=== PATIENT | male | born 1965 | race Caucasian/White ===

== ENCOUNTER 2022-10-09 12:48 | Inpatient (IN) ==
[2022-10-09] MEDS ORDERED: SODIUM CHLORIDE 0.9% 500 ML IV STA (12:53)
--- NOTE | 2022-10-09 13:41 | XRay Report ---
XR chest 1V not portable HISTORY: 56 years-old Male Sepsis acute sepsis COMPARISON: None TECHNIQUE: PA view of the chest FINDINGS: Cardiomediastinal and hilar silhouettes are within normal limits. No pneumothorax, pleural effusion, airspace consolidation or pulmonary edema. Bones of the chest appear grossly intact. IMPRESSION: No acute process. ACT 112: Negative or not required by law. The above report was generated using voice recognition software. It may contain grammatical, syntax o r spelling errors. Electronically signed by: Gibran Cosby M.D. 10/09/2022 1:40 PM
[2022-10-09 13:46] LABS: Basophils # (auto) 0.06 K/uL (0-0.2); Basophils % (auto) 0.6 %; Eosinophils # (auto) 0.17 K/uL (0-0.50); Eosinophils % (auto) 1.8 %; Hematocrit (blood only) 46.1 % (42.0-52.0); Hemoglobin 16.3 g/dl (14.0-18.0); Immature Granulocytes # (auto) 0.04 K/uL (0.01-0.20); Immature Granulocytes % (auto) 0.4 %; Lymphocytes # (auto) 0.58 K/uL (1.2-3.4); Lymphocytes % (auto) 6.2 %; Mean Corpuscular Hemoglobin 32.1 pg (25.0-34.0); Mean Corpuscular Hgb Conc 35.4 g/dL (32.0-36.0); Mean Corpuscular Volume 90.7 fL (80.0-100.0); Mean Platelet Volume 9.8 fL (9.4-12.4); Monocytes # (auto) 0.67 K/uL (0.11-0.59); Monocytes % (auto) 7.2 %; Neutrophils # (auto) 7.82 K/uL (1.40-6.50); Neutrophils % (auto) 83.8 %; Platelet Count 277 K/uL (130-400); RDW Coefficient of Variation 12.5 % (11.5-14.5); RDW Standard Deviation 41.2 fL (36.4-46.3); Red Blood Count 5.08 M/uL (4.70-6.10); White Blood Count 9.34 K/ul (4.8-10.8)
[2022-10-09 13:58] LABS: Albumin Level 4.5 gm/dl (3.4-5.0); Bilirubin,Total 0.9 mg/dl (0.2-1.0); Calcium 9.4 mg/dl (8.6-10.3); Partial Thromboplastin Ratio 0.9; Partial Thromboplastin Time 25.7 Seconds (21.0-31.0); Potassium 3.9 mmol/L (3.5-5.1); Prothrombin Time 11.3 Seconds (9.0-12.0)
[2022-10-09 14:03] LABS: Albumin Globulin Ratio 1.5 (0.9-2); BUN Creatinine Ratio 8.6 (10-20); Creatinine Clr Calc Pharmacy 74.3 ml/min; Est GFR (African American) 92.2 ml/min; Est GFR (Non-African American) 79.5 ml/min; Total Protein 7.5 gm/dl (6.0-8.3)
[2022-10-09 14:08] LABS: Troponin I High Sensitivity 2.6 pg/ml (0-20)
--- NOTE | 2022-10-09 14:29 | Emergency Department Note ---
History of Present Illness General Chief complaint: Fever Stated complaint: FEVER, CHILLS, NEAR SYNCOPE Time Seen by Provider: 10/09/22 14:27 History of Present Illness This 56-year-old male patient presents to the emergency department for evaluation of fever, chills, and near syncope that started early this morning. He woke up at 4:30 am with chills. Then had fever of 102 F at 7:00 am. He took 2 Tylenol at 8 am. At 11:30 am the fever seemed to resolve, but he still had the chills. He was laying on the couch after the fever broke and when he tried to stand up, he felt like he was going to pass out. He did not actually have a syncopal episode. His neighbor got him a cold washcloth and checked his blood pressure which was low at 99/66. Had some pressure in his chest and tingling in his finger tips at that time too. The chest pressure and tingling symptoms lasted for 1 hour and then resolved. Feels like the fever has returned again. Denies any cough or SOB. Has a mild sore throat. Still able to swallow. Denies any abdominal pain, nausea, or vomiting. Denies any urinary symptoms. Denies any problems with his BMs. Has not eaten anything yet today and has not drank much today either. No known ill contacts currently, but his son had strep throat 2 weeks ago. Childhood immunizations up to date. Had 2 COVID vaccines. No flu vaccines. He states that he rarely gets sick. Home Medications Medication Instructions Recorded Confirmed Type [id number] acid-vit 1 tab PO DAILY 10/09/22 10/09/22 History K-lycop 400 mcg-20 mcg-370 mcg tablet (Men's 50 Plus Multivitamin) nirmatrelvir 300 mg (150 mg See Rx Instructions PO .COMPLEX 10/09/22 Rx x2)-ritonavir 100 mg tablet,dose #30 ea pack(EUA) (Paxlovid) Allergies Allergy/AdvReac Type Severity Reaction Status Date / Time banana Allergy Severe Hives Unverified 10/09/22 16:58 Past Med/Surg History Medical History No pertinent past medical history Surgical History H/O umbilical hernia repair History of appendectomy Social History (Updated 10/09/22 @ 17:19 by Melissa Dickson PA-C) Smoking Status: Current every day smoker Tobacco Type: Cigarettes packs per day: 0.5; Cigarettes Per Day: 1/2 ppd; Do You Dip or Chew Tobacco: No; Hx Alcohol Use: Yes Alcohol type: beer and hard liquor Hx Substance Use: No Preferred Language: Yakut Desulfurizer Operator Required: No Beliefs That Will Affect Care: None Current Living Situation: Spouse Feels Safe at Home: Yes Safety Concerns: Feels Safe At This Time Assistive Devices: Glasses Assistive Devices Comment: reader glasses Review of Systems See HPI for pertinent positives & negatives. Physical Exam Vital Signs Vital Signs - 24 hr 10/09/22 12:51 10/09/22 15:37 10/09/22 15:38 Temperature 38.4 C H Temperature Source Temporal Artery Scan Pulse Rate 137 H 114 H 113 H Pulse Rate [Right Finger] Pulse Rate from SpO2 Sensor 111 H Pulse Rhythm Pulse Rhythm [Right Finger] Pulse Strength [Right Finger] Respiratory Rate 20 15 Respiratory Effort / Characteristics Non-Labored Respiratory Depth Normal Respiratory Pattern Regular Blood Pressure 145/71 H 89/60 L Blood Pressure Mean 95 69 Blood Pressure Position Sitting Pulse Oximetry 94 Oxygen Delivery Method Room Air Oxygen Flow Rate Sepsis Recent Fever Within 48 Hours Yes Sepsis New/Unexplained Change in Mental Status No Sepsis Action Taken by Nursing Physician Notified 10/09/22 15:40 10/09/22 15:50 10/09/22 16:00 Temperature Temperature Source Pulse Rate 111 H 114 H Pulse Rate [Right Finger] Pulse Rate from SpO2 Sensor 108 H 115 H Pulse Rhythm Pulse Rhythm [Right Finger] Pulse Strength [Right Finger] Respiratory Rate 18 31 H Respiratory Effort / Characteristics Respiratory Depth Respiratory Pattern Blood Pressure 88/60 L Blood Pressure Mean 72 Blood Pressure Position Pulse Oximetry 93 92 Oxygen Delivery Method Oxygen Flow Rate Sepsis Recent Fever Within 48 Hours Sepsis New/Unexplained Change in Mental Status Sepsis Action Taken by Nursing 10/09/22 16:00 10/09/22 16:10 10/09/22 16:20 Temperature Temperature Source Pulse Rate 115 H 105 H 104 H Pulse Rate [Right Finger] Pulse Rate from SpO2 Sensor 114 H 107 H 105 H Pulse Rhythm Pulse Rhythm [Right Finger] Pulse Strength [Right Finger] Respiratory Rate 23 27 H 21 Respiratory Effort / Characteristics Respiratory Depth Respiratory Pattern Blood Pressure Blood Pressure Mean Blood Pressure Position Pulse Oximetry 94 93 93 Oxygen Delivery Method Oxygen Flow Rate Sepsis Recent Fever Within 48 Hours Sepsis New/Unexplained Change in Mental Status Sepsis Action Taken by Nursing 10/09/22 16:30 10/09/22 16:30 10/09/22 15:30 Temperature 38.6 C H Temperature Source Oral Pulse Rate 100 H Pulse Rate [Right Finger] Pulse Rate from SpO2 Sensor 100 H Pulse Rhythm Pulse Rhythm [Right Finger] Pulse Strength [Right Finger] Respiratory Rate 31 H Respiratory Effort / Characteristics Respiratory Depth Respiratory Pattern Blood Pressure 82/58 L Blood Pressure Mean 67 Blood Pressure Position Pulse Oximetry 92 Oxygen Delivery Method Oxygen Flow Rate Sepsis Recent Fever Within 48 Hours Sepsis New/Unexplained Change in Mental Status Sepsis Action Taken by Nursing 10/09/22 16:56 10/09/22 16:58 10/09/22 16:58 Temperature 37.6 C H Temperature Source Oral Pulse Rate 102 H Pulse Rate [Right Finger] 101 H Pulse Rate from SpO2 Sensor Pulse Rhythm Regular Pulse Rhythm [Right Finger] Regular Pulse Strength [Right Finger] Normal Respiratory Rate 32 H 28 H Respiratory Effort / Characteristics Non-Labored Spontaneous Respiratory Depth Normal Respiratory Pattern Regular Blood Pressure Blood Pressure Mean Blood Pressure Position Pulse Oximetry 92 92 94 Oxygen Delivery Method Room Air Room Air Oxygen Flow Rate 0 Sepsis Recent Fever Within 48 Hours Sepsis New/Unexplained Change in Mental Status Sepsis Action Taken by Nursing 10/09/22 16:40 10/09/22 16:50 10/09/22 16:59 Temperature Temperature Source Pulse Rate 103 H 98 H Pulse Rate [Right Finger] Pulse Rate from SpO2 Sensor 103 H 100 H Pulse Rhythm Pulse Rhythm [Right Finger] Pulse Strength [Right Finger] Respiratory Rate 27 H 24 Respiratory Effort / Characteristics Respiratory Depth Respiratory Pattern Blood Pressure 87/64 L Blood Pressure Mean 71 Blood Pressure Position Pulse Oximetry 92 95 Oxygen Delivery Method Oxygen Flow Rate Sepsis Recent Fever Within 48 Hours Sepsis New/Unexplained Change in Mental Status Sepsis Action Taken by Nursing 10/09/22 16:59 10/09/22 17:00 10/09/22 17:00 Temperature Temperature Source Pulse Rate 103 H 101 H Pulse Rate [Right Finger] Pulse Rate from SpO2 Sensor 102 H 101 H Pulse Rhythm Pulse Rhythm [Right Finger] Pulse Strength [Right Finger] Respiratory Rate 18 20 Respiratory Effort / Characteristics Respiratory Depth Respiratory Pattern Blood Pressure 97/60 L Blood Pressure Mean 77 Blood Pressure Position Pulse Oximetry 96 95 Oxygen Delivery Method Oxygen Flow Rate Sepsis Recent Fever Within 48 Hours Sepsis New/Unexplained Change in Mental Status Sepsis Action Taken by Nursing 10/09/22 17:10 10/09/22 17:20 Temperature Temperature Source Pulse Rate 95 H 98 H Pulse Rate [Right Finger] Pulse Rate from SpO2 Sensor 94 H 99 H Pulse Rhythm Pulse Rhythm [Right Finger] Pulse Strength [Right Finger] Respiratory Rate 30 H 26 H Respiratory Effort / Characteristics Respiratory Depth Respiratory Pattern Blood Pressure Blood Pressure Mean Blood Pressure Position Pulse Oximetry 93 93 Oxygen Delivery Method Oxygen Flow Rate Sepsis Recent Fever Within 48 Hours Sepsis New/Unexplained Change in Mental Status Sepsis Action Taken by Nursing Vital Signs: Vitals are noted on the nurse's note and reviewed by myself. GENERAL: The patient is ill-appearing, but non toxic in appearance and in no acute distress. SKIN: The skin was without obvious rashes, erythema, edema, or bruising. Capillary reflex less than 2 seconds. HEAD: Normocephalic, atraumatic. EARS: External auditory canals clear, tympanic membrane pearly barrow without erythema or effusion. No tragus tenderness. No mastoid tenderness. EYES: Pupils equal round and reactive to light and accommodation. Conjunctivae without injection, sclerae without icterus. Extraocular movements intact. NOSE: Patent, turbinates inflamed with no discharge. No sinus tenderness. MOUTH: Mucous membranes moist. Airway patent, uvula midline. Pharynx erythematous and edematous without exudate. Pharynx without postnasal drip. No evidence for peritonsillar abscess. NECK: Supple without nuchal rigidity. Negative Kernig and Brudzinski. No lymphadenopathy. HEART: Regular rate and rhythm without murmurs gallops or rubs. LUNGS: Clear to auscultation bilaterally without wheezes, rales or rhonchi. No accessory muscle use or retractions. ABDOMEN: Positive bowel sounds x 4. Normal tympanic percussion. Soft, nont frannie, without masses or organomegaly. NEURO: Patient was alert and oriented to person place and time. Cerebellar function intact. No focal neurological deficits. Course Administered Medications Albuterol (Albut/Ipratrop 3mg/0.5mg Neb 3 Ml Vial) 3 ml NEB Q4R VARUN; Protocol Stop: 11/08/22 20:03 Last Admin: 10/09/22 20:22 Dose: 3 ml Documented By: CORTEZ Guaifenesin (Guaifenesin 600 Mg Tabcr) 600 mg PO Q12 VARUN Stop: 11/08/22 20:59 Last Admin: 10/09/22 20:41 Dose: 600 mg Documented By: CHARLEY Heparin Sodium (Porcine) (Heparin Sod 5,000 Unit/0.5 Ml Vial) 5,000 units SQ Q8 VARUN Stop: 11/08/22 21:59 Last Admin: 10/09/22 20:42 Dose: 5,000 units Documented By: CHARLEY Discontinued Medications Acetaminophen (Acetaminophen 500 Mg Tab) 1,000 mg PO NOW STA Stop: 10/09/22 14:46 Last Admin: 10/09/22 14:48 Dose: 1,000 mg Documented By: ANTONIO Sodium Chloride (Nss) 500 mls @ 999 mls/hr IV .Q31M STA Stop: 10/09/22 13:23 Last Infusion: 10/09/22 16:06 Dose: 0 mls/hr Documented By: LABORATORY TECHNOLOGY TEACHER Admin: 10/09/22 13:16 Dose: 999 mls/hr Documented By: WILBER Sodium Chloride (Nss 1000ml) 2,000 mls @ 999 mls/hr IV .Q2H1M ONE Stop: 10/09/22 16:39 Last Infusion: 10/09/22 16:40 Dose: 0 mls/hr Documented By: LABORATORY TECHNOLOGY TEACHER Admin: 10/09/22 14:44 Dose: 999 mls/hr Documented By: ANTONIO Piperacillin Sod/Tazobactam Sod (Zosyn) 4.5 gm in 120 mls @ 240 mls/hr IV NOW ONE Stop: 10/09/22 15:21 Last Infusion: 10/09/22 17:01 Dose: 0 mls/hr Documented By: LABORATORY TECHNOLOGY TEACHER Admin: 10/09/22 16:01 Dose: 240 mls/hr Documented By: DARRIAN Vancomycin HCl 1,750 mg/ (Sodium Chloride) 535 mls @ 200 mls/hr IV NOW ONE Stop: 10/09/22 17:32 Last Admin: 10/09/22 16:59 Dose: 200 mls/hr Documented By: DARRIAN Clindamycin Phosphate (Cleocin/D5w) 900 mg in 50 mls @ 100 mls/hr IV NOW ONE Stop: 10/09/22 15:21 Last Infusion: 10/09/22 16:05 Dose: 0 mls/hr Documented By: LABORATORY TECHNOLOGY TEACHER Admin: 10/09/22 15:34 Dose: 100 mls/hr Documented By: LABORATORY TECHNOLOGY TEACHER Sodium Chloride (Nss) 500 mls @ 999 mls/hr IV .Q31M ONE Stop: 10/09/22 16:29 Last Infusion: 10/09/22 17:00 Dose: 0 mls/hr Documented By: LABORATORY TECHNOLOGY TEACHER Admin: 10/09/22 16:02 Dose: 999 mls/hr Documented By: LABORATORY TECHNOLOGY TEACHER Sodium Chloride (Nss 1000ml) 250 mls @ 999 mls/hr IV .Q16M ONE Stop: 10/09/22 18:16 Last Admin: 10/09/22 20:41 Dose: 999 mls/hr Documented By: CHARLEY Ibuprofen (Ibuprofen 600 Mg Tab) 600 mg PO NOW STA Stop: 10/09/22 16:00 Last Admin: 10/09/22 16:59 Dose: 600 mg Documented By: LABORATORY TECHNOLOGY TEACHER Medical Decision Making Differential Diagnosis Differential diagnosis includes Influenza, RSV, COVID, viral syndrome, otitis media, otitis externa, pharyngitis, strep throat, pneumonia, meningitis, urinary tract infection, cellulitis, abscess, sepsis, bacteremia, as well as other pathologies. Laboratory Data Attestation: I reviewed the patient's lab results. 10/09/22 12:53 10/09/22 12:53 Lab Results 10/09/22 10/09/22 10/09/22 Range/Units 12:53 12:53 12:53 WBC 9.34 (4.8-10.8) K/ul RBC 5.08 (4.70-6.10) M/uL Hgb 16.3 (14.0-18.0) g/dl Hct 46.1 (42.0-52.0) % MCV 90.7 (80.0-100.0) fL MCH 32.1 (25.0-34.0) pg MCHC 35.4 (32.0-36.0) g/dL RDW Std Deviation 41.2 (36.4-46.3) fL RDW Coeff of Jamil 12.5 (11.5-14.5) % Plt Count 277 (130-400) K/uL MPV 9.8 (9.4-12.4) fL Immature Gran % (Auto) 0.4 % Neut % (Auto) 83.8 % Lymph % (Auto) 6.2 % [place] % (Auto) 7.2 % Eos % (Auto) 1.8 % Baso % (Auto) 0.6 % Neut # (Auto) 7.82 H (1.40-6.50) K/uL Lymph # (Auto) 0.58 L (1.2-3.4) K/uL [place] # (Auto) 0.67 H (0.11-0.59) K/uL Eos # (Auto) 0.17 (0-0.50) K/uL Baso # (Auto) 0.06 (0-0.2) K/uL Immature Gran # (Auto) 0.04 (0.01-0.20) K/uL PT 11.3 (9.0-12.0) Seconds INR 1.0 (0.9-1.1) APTT 25.7 (21.0-31.0) Seconds PTT Ratio 0.9 Sodium (136-145) mmol/L Potassium (3.5-5.1) mmol/L Chloride (98-107) mmol/L Carbon Dioxide (21-32) mmol/L Anion Gap (3-11) BUN (6-23) mg/dl Creatinine (0.6-1.4) mg/dl Est Cr Clr Drug Dosing ml/min Est GFR ( Amer) ml/min Est GFR (Non-Af Amer) ml/min BUN/Creatinine Ratio (10-20) Glucose (70-99(Fasting)) mg/dl Lactate 2.6 H* (0.4-2.0) mmol/L Calcium (8.6-10.3) mg/dl Magnesium (1.7-2.4) mg/dl Total Bilirubin (0.2-1.0) mg/dl AST (13-39) U/L ALT (7-52) U/L Alkaline Phosphatase (34-104) U/L Troponin I High Sens (0-20) pg/ml Total Protein (6.0-8.3) gm/dl Albumin (3.4-5.0) gm/dl Globulin (2.5-4.0) gm/dl Albumin/Globulin Ratio (0.9-2) Procalcitonin (0-0.5) ng/ml Urine Color Urine Appearance (Clear) Urine pH (4.5-7.5) Ur Specific [place] (1.000-1.030) Urine Protein (Negative) Urine Glucose (UA) (Negative) Urine Ketones (Negative) Urine Blood (Negative) Urine Nitrite (Negative) Urine Bilirubin (Negative) Urine Urobilinogen (Negative) Ur Leukocyte Esterase (Negative) Urine WBC (Auto) (0-5) /hpf Urine RBC (Auto) (0-4) /hpf U Hyaline Cast (Auto) (0-5) /lpf U Epithel Cells (Auto) (0-5) /lpf Urine Bacteria (Auto) (Negative) Ur Renal Epithelial Cell Adenovirus (PCR) (NotDetected) B. pertussis DNA (PCR) (NotDetected) B.parapertussis DNA PCR (NotDetected) C. pneumoniae DNA (PCR) (NotDetected) Coronavirus OC43 (PCR) (NotDetected) Coronavirus HKU1 (PCR) (NotDetected) Coronavirus 229E (PCR) (NotDetected) SARS-CoV-2 (PCR) (NotDetected) Coronavirus NL63 (PCR) (NotDetected) Monoscreen (Negative) Human Metapneumovir PCR (NotDetected) Influenza Type A (PCR) (NotDetected) Influenza Type B (PCR) (NotDetected) M. pneumoniae (PCR) (NotDetected) Parainfluenza 1 (PCR) (NotDetected) Parainfluenza 2 (PCR) (NotDetected) Parainfluenza 3 (PCR) (NotDetected) Parainfluenza 4 (PCR) (NotDetected) RSV (PCR) (NotDetected) Entero/Rhino (PCR) (NotDetected) Group A Strep (Molecular) (Negative) Group A Strep (PCR) 10/09/22 10/09/22 10/09/22 Range/Units 12:53 12:53 14:39 WBC (4.8-10.8) K/ul RBC (4.70-6.10) M/uL Hgb (14.0-18.0) g/dl Hct (42.0-52.0) % MCV (80.0-100.0) fL MCH (25.0-34.0) pg MCHC (32.0-36.0) g/dL RDW Std Deviation (36.4-46.3) fL RDW Coeff of Jamil (11.5-14.5) % Plt Count (130-400) K/uL MPV (9.4-12.4) fL Immature Gran % (Auto) % Neut % (Auto) % Lymph % (Auto) % [place] % (Auto) % Eos % (Auto) % Baso % (Auto) % Neut # (Auto) (1.40-6.50) K/uL Lymph # (Auto) (1.2-3.4) K/uL [place] # (Auto) (0.11-0.59) K/uL Eos # (Auto) (0-0.50) K/uL Baso # (Auto) (0-0.2) K/uL Immature Gran # (Auto) (0.01-0.20) K/uL PT (9.0-12.0) Seconds INR (0.9-1.1) APTT (21.0-31.0) Seconds PTT Ratio Sodium 138 (136-145) mmol/L Potassium 3.9 (3.5-5.1) mmol/L Chloride 103 (98-107) mmol/L Carbon Dioxide 27 (21-32) mmol/L Anion Gap 8 (3-11) BUN 9 (6-23) mg/dl Creatinine 1.05 (0.6-1.4) mg/dl Est Cr Clr Drug Dosing 74.3 ml/min Est GFR ( Amer) 92.2 ml/min Est GFR (Non-Af Amer) 79.5 ml/min BUN/Creatinine Ratio 8.6 L (10-20) Glucose 94 (70-99(Fasting)) mg/dl Lactate (0.4-2.0) mmol/L Calcium 9.4 (8.6-10.3) mg/dl Magnesium 2.0 (1.7-2.4) mg/dl Total Bilirubin 0.9 (0.2-1.0) mg/dl AST 26 (13-39) U/L ALT 31 (7-52) U/L Alkaline Phosphatase 64 (34-104) U/L Troponin I High Sens 2.6 (0-20) pg/ml Total Protein 7.5 (6.0-8.3) gm/dl Albumin 4.5 (3.4-5.0) gm/dl Globulin 3.0 (2.5-4.0) gm/dl Albumin/Globulin Ratio 1.5 (0.9-2) Procalcitonin < 0.05 (0-0.5) ng/ml Urine Color Urine Appearance (Clear) Urine pH (4.5-7.5) Ur Specific [place] (1.000-1.030) Urine Protein (Negative) Urine Glucose (UA) (Negative) Urine Ketones (Negative) Urine Blood (Negative) Urine Nitrite (Negative) Urine Bilirubin (Negative) Urine Urobilinogen (Negative) Ur Leukocyte Esterase (Negative) Urine WBC (Auto) (0-5) /hpf Urine RBC (Auto) (0-4) /hpf U Hyaline Cast (Auto) (0-5) /lpf U Epithel Cells (Auto) (0-5) /lpf Urine Bacteria (Auto) (Negative) Ur Renal Epithelial Cell Adenovirus (PCR) (NotDetected) B. pertussis DNA (PCR) (NotDetected) B.parapertussis DNA PCR (NotDetected) C. pneumoniae DNA (PCR) (NotDetected) Coronavirus OC43 (PCR) (NotDetected) Coronavirus HKU1 (PCR) (NotDetected) Coronavirus 229E (PCR) (NotDetected) SARS-CoV-2 (PCR) (NotDetected) Coronavirus NL63 (PCR) (NotDetected) Monoscreen (Negative) Human Metapneumovir PCR (NotDetected) Influenza Type A (PCR) (NotDetected) Influenza Type B (PCR) (NotDetected) M. pneumoniae (PCR) (NotDetected) Parainfluenza 1 (PCR) (NotDetected) Parainfluenza 2 (PCR) (NotDetected) Parainfluenza 3 (PCR) (NotDetected) Parainfluenza 4 (PCR) (NotDetected) RSV (PCR) (NotDetected) Entero/Rhino (PCR) (NotDetected) Group A Strep (Molecular) (Negative) Group A Strep (PCR) Cancelled 10/09/22 10/09/22 10/09/22 Range/Units 14:39 14:50 15:34 WBC (4.8-10.8) K/ul RBC (4.70-6.10) M/uL Hgb (14.0-18.0) g/dl Hct (42.0-52.0) % MCV (80.0-100.0) fL MCH (25.0-34.0) pg MCHC (32.0-36.0) g/dL RDW Std Deviation (36.4-46.3) fL RDW Coeff of Jamil (11.5-14.5) % Plt Count (130-400) K/uL MPV (9.4-12.4) fL Immature Gran % (Auto) % Neut % (Auto) % Lymph % (Auto) % [place] % (Auto) % Eos % (Auto) % Baso % (Auto) % Neut # (Auto) (1.40-6.50) K/uL Lymph # (Auto) (1.2-3.4) K/uL [place] # (Auto) (0.11-0.59) K/uL Eos # (Auto) (0-0.50) K/uL Baso # (Auto) (0-0.2) K/uL Immature Gran # (Auto) (0.01-0.20) K/uL PT (9.0-12.0) Seconds INR (0.9-1.1) APTT (21.0-31.0) Seconds PTT Ratio Sodium (136-145) mmol/L Potassium (3.5-5.1) mmol/L Chloride (98-107) mmol/L Carbon Dioxide (21-32) mmol/L Anion Gap (3-11) BUN (6-23) mg/dl Creatinine (0.6-1.4) mg/dl Est Cr Clr Drug Dosing ml/min Est GFR ( Amer) ml/min Est GFR (Non-Af Amer) ml/min BUN/Creatinine Ratio (10-20) Glucose (70-99(Fasting)) mg/dl Lactate 2.2 H* (0.4-2.0) mmol/L Calcium (8.6-10.3) mg/dl Magnesium (1.7-2.4) mg/dl Total Bilirubin (0.2-1.0) mg/dl AST (13-39) U/L ALT (7-52) U/L Alkaline Phosphatase (34-104) U/L Troponin I High Sens (0-20) pg/ml Total Protein (6.0-8.3) gm/dl Albumin (3.4-5.0) gm/dl Globulin (2.5-4.0) gm/dl Albumin/Globulin Ratio (0.9-2) Procalcitonin (0-0.5) ng/ml Urine Color Dark Yellow Urine Appearance Clear (Clear) Urine pH 8.5 H (4.5-7.5) Ur Specific [place] 1.026 (1.000-1.030) Urine Protein 1+ H (Negative) Urine Glucose (UA) Negative (Negative) Urine Ketones Trace H (Negative) Urine Blood Negative (Negative) Urine Nitrite Negative (Negative) Urine Bilirubin Negative (Negative) Urine Urobilinogen Negative (Negative) Ur Leukocyte Esterase Negative (Negative) Urine WBC (Auto) 1-5 (0-5) /hpf Urine RBC (Auto) 0-4 (0-4) /hpf U Hyaline Cast (Auto) 1-5 (0-5) /lpf U Epithel Cells (Auto) >30 H (0-5) /lpf Urine Bacteria (Auto) Negative (Negative) Ur Renal Epithelial Cell Not Reportable Adenovirus (PCR) (NotDetected) B. pertussis DNA (PCR) (NotDetected) B.parapertussis DNA PCR (NotDetected) C. pneumoniae DNA (PCR) (NotDetected) Coronavirus OC43 (PCR) (NotDetected) Coronavirus HKU1 (PCR) (NotDetected) Coronavirus 229E (PCR) (NotDetected) SARS-CoV-2 (PCR) (NotDetected) Coronavirus NL63 (PCR) (NotDetected) Monoscreen (Negative) Human Metapneumovir PCR (NotDetected) Influenza Type A (PCR) (NotDetected) Influenza Type B (PCR) (NotDetected) M. pneumoniae (PCR) (NotDetected) Parainfluenza 1 (PCR) (NotDetected) Parainfluenza 2 (PCR) (NotDetected) Parainfluenza 3 (PCR) (NotDetected) Parainfluenza 4 (PCR) (NotDetected) RSV (PCR) (NotDetected) Entero/Rhino (PCR) (NotDetected) Group A Strep (Molecular) Negative (Negative) Group A Strep (PCR) 10/09/22 10/09/22 Range/Units 15:43 17:11 WBC (4.8-10.8) K/ul RBC (4.70-6.10) M/uL Hgb (14.0-18.0) g/dl Hct (42.0-52.0) % MCV (80.0-100.0) fL MCH (25.0-34.0) pg MCHC (32.0-36.0) g/dL RDW Std Deviation (36.4-46.3) fL RDW Coeff of Jamil (11.5-14.5) % Plt Count (130-400) K/uL MPV (9.4-12.4) fL Immature Gran % (Auto) % Neut % (Auto) % Lymph % (Auto) % [place] % (Auto) % Eos % (Auto) % Baso % (Auto) % Neut # (Auto) (1.40-6.50) K/uL Lymph # (Auto) (1.2-3.4) K/uL [place] # (Auto) (0.11-0.59) K/uL Eos # (Auto) (0-0.50) K/uL Baso # (Auto) (0-0.2) K/uL Immature Gran # (Auto) (0.01-0.20) K/uL PT (9.0-12.0) Seconds INR (0.9-1.1) APTT (21.0-31.0) Seconds PTT Ratio Sodium (136-145) mmol/L Potassium (3.5-5.1) mmol/L Chloride (98-107) mmol/L Carbon Dioxide (21-32) mmol/L Anion Gap (3-11) BUN (6-23) mg/dl Creatinine (0.6-1.4) mg/dl Est Cr Clr Drug Dosing ml/min Est GFR ( Amer) ml/min Est GFR (Non-Af Amer) ml/min BUN/Creatinine Ratio (10-20) Glucose (70-99(Fasting)) mg/dl Lactate (0.4-2.0) mmol/L Calcium (8.6-10.3) mg/dl Magnesium (1.7-2.4) mg/dl Total Bilirubin (0.2-1.0) mg/dl AST (13-39) U/L ALT (7-52) U/L Alkaline Phosphatase (34-104) U/L Troponin I High Sens (0-20) pg/ml Total Protein (6.0-8.3) gm/dl Albumin (3.4-5.0) gm/dl Globulin (2.5-4.0) gm/dl Albumin/Globulin Ratio (0.9-2) Procalcitonin (0-0.5) ng/ml Urine Color Urine Appearance (Clear) Urine pH (4.5-7.5) Ur Specific [place] (1.000-1.030) Urine Protein (Negative) Urine Glucose (UA) (Negative) Urine Ketones (Negative) Urine Blood (Negative) Urine Nitrite (Negative) Urine Bilirubin (Negative) Urine Urobilinogen (Negative) Ur Leukocyte Esterase (Negative) Urine WBC (Auto) (0-5) /hpf Urine RBC (Auto) (0-4) /hpf U Hyaline Cast (Auto) (0-5) /lpf U Epithel Cells (Auto) (0-5) /lpf Urine Bacteria (Auto) (Negative) Ur Renal Epithelial Cell Adenovirus (PCR) Not Detected (NotDetected) B. pertussis DNA (PCR) Not Detected (NotDetected) B.parapertussis DNA PCR Not Detected (NotDetected) C. pneumoniae DNA (PCR) Not Detected (NotDetected) Coronavirus OC43 (PCR) Not Detected (NotDetected) Coronavirus HKU1 (PCR) Not Detected (NotDetected) Coronavirus 229E (PCR) Not Detected (NotDetected) SARS-CoV-2 (PCR) DETECTED A* (NotDetected) Coronavirus NL63 (PCR) Not Detected (NotDetected) Monoscreen Negative (Negative) Human Metapneumovir PCR Not Detected (NotDetected) Influenza Type A (PCR) Not Detected (NotDetected) Influenza Type B (PCR) Not Detected (NotDetected) M. pneumoniae (PCR) Not Detected (NotDetected) Parainfluenza 1 (PCR) Not Detected (NotDetected) Parainfluenza 2 (PCR) Not Detected (NotDetected) Parainfluenza 3 (PCR) Not Detected (NotDetected) Parainfluenza 4 (PCR) Not Detected (NotDetected) RSV (PCR) Not Detected (NotDetected) Entero/Rhino (PCR) Not Detected (NotDetected) Group A Strep (Molecular) (Negative) Group A Strep (PCR) Imaging Data Radiologist's Impression: Chest X-Ray 10/09/22 12:53 XR chest 1V not portable HISTORY: 56 years-old Male Sepsis acute sepsis COMPARISON: None TECHNIQUE: PA view of the chest FINDINGS: Cardiomediastinal and hilar silhouettes are within normal limits. No pneumothorax, pleural effusion, airspace consolidation or pulmonary edema. Bones of the chest appear grossly intact. IMPRESSION: No acute process. ACT 112: Negative or not required by law. The above report was generated using voice recognition software. It may contain grammatical, syntax or spelling errors. Electronically signed by: Gibran Cosby M.D. 10/09/2022 1:40 PM MDM Narrative Due to the abnormally long wait time, the patient was triaged, an IV lock placed and labs drawn, and nursing protocols ordered prior to being taken back to a ro om. By the time I examined the patient, a lot of his blood work had come back including his elevated lactate level at 2.6. The patient had episodes of tachycardia as well as hypotension while in the emergency department and he was febrile up to 38.6 C. The patient was given a total of 2.5 L of normal saline solution bolus in the ER. He was also given Tylenol 1000 mg p.o. followed by ibuprofen 600 mg p.o. for pain and fever. The patient did finally defervescence after the ibuprofen. Continuous hospital monitor: Order was placed for continuous hospital monitor. Patient was placed on the hospital monitor and continuous pulse ox. Patient was noted to be in sinus tachycardia at an initial rate of 130 bpm per my interpretation. EKG interpreted by myself as sinus tachycardia at 113 bpm with no acute ST or T wave changes. Chest x-ray was interpreted by myself and read by radiology as above as negative for acute cardiopulmonary etiology. CBC with normal white blood cell count of 9.34, normal hemoglobin at 16.3, and normal platelet count of 277. Coags were normal. CMP was normal. High- sensitivity troponin was normal. Magnesium was normal. Procalcitonin was normal. Initial lactate was elevated at 2.6 with repeat lactate level of 2.2. Group A strep was negative. Urinalysis without evidence for UTI. Blood cultures are pending. The patient's son had strep throat 2 weeks ago. The patient's negative strep test may be a false negative due to early presentation of symptoms. I spoke with the ED pharmacist who recommended the patient get Zosyn, vancomycin, and clindamycin IV for treatment at this time and the patient was given these antibiotics. There was a delay in obtaining the patient's respiratory bio fire panel results because the lab stated they did not receive the BioFire swab that was sent down and the swab had to be recollected. The respiratory bio fire did come back positive for COVID after the patient had already been admitted. The patient was independently evaluated by Dr. Foley, who agrees with my assessment and treatment plan. We will admit the patient for further evaluation and treatment due to the patient's elevated lactate level, hypotension, tachycardia, and febrile illness. I spoke with the on-call hospitalist who agreed to admit the patient for further evaluation and treatment. Please refer to their dictation for further details. The patient was admitted in stable condition. Impression & Plan Sepsis, Elevated lactic acid level, Fever, COVID-19 Discharge Plan Visit Data Chief Complaint: Fever Stated Complaint: FEVER, CHILLS, NEAR SYNCOPE ED Provider: Enrico Foley ED Midlevel Provider: Kathia Nielsen Discharge Problem: Sepsis, Elevated lactic acid level, Fever, COVID-19 Patient Disposition: Admitted As Inpatient Condition: Good Discharge Instructions Interventions: ED Discharge Assessment Last Done: 10/09/22 19:40
[2022-10-09] MEDS ORDERED: SODIUM CHLORIDE 0.9% 1000ML 2,000 ML IV ONE (14:39)
[2022-10-09] MEDS ORDERED: ACETAMINOPHEN 500 MG TAB PO STA (14:45)
[2022-10-09] MEDS ORDERED: PIPERACILLIN/TAZOBACTAM 4.5 GM/120 ML BAG IV ONE (14:52)
[2022-10-09] MEDS ORDERED: VANCOMYCIN HCL 1,750 MG in SODIUM CHLORIDE 0.9% 500 ML IV ONE (14:52)
[2022-10-09] MEDS ORDERED: CLINDAMYCIN/D5W 900 MG/50 ML BAG IV ONE (14:52)
[2022-10-09] MEDS ORDERED: VANCOMYCIN CONSULT ACTIVE PRN (14:52)
[2022-10-09] MEDS ORDERED: IBUPROFEN 600 MG TAB PO STA (15:59)
[2022-10-09] MEDS ORDERED: SODIUM CHLORIDE 0.9% 500 ML IV ONE (15:59)
[2022-10-09 16:51] LABS: Appearance Urine Clear (Clear); Bacteria Urine Automated Negative (Negative); Bilirubin Urine Negative (Negative); Blood Urine Negative (Negative); Color Urine Dark Yellow; Epithelial Cell Urine Auto >30 /lpf (0-5); Glucose Urine UA Negative (Negative); Ketones Urine Trace (Negative); Leukocyte Esterase Urine Negative (Negative); Nitrite Urine Negative (Negative); RBC Urine Automated 0-4 /hpf (0-4); Specific Gravity Urine 1.026 (1.000-1.030); Urobilinogen Urine Negative (Negative); pH Urine 8.5 (4.5-7.5)
--- NOTE | 2022-10-09 17:00 | History & Physical Report ---
Date of Service October 09, 2022 Assessment & Plan (1) Sepsis: Plan: Tachycardic/hypotensive (but not hypoxic, no pleuritic chest pain reported) with elevated lactic on admission to 2.6--> 2.2 on repeat CXR w/o consolidative process Unclear etiology initially, however did appear likely to be viral in nature vs strep? son recently ill w/ strep throat about 2 weeks ago per report -- initial strep testing in ER negative. fine bibasilar crackles on exam and biofire still pending at trime of initial examination w/ bilateral faint crackles/concerns for COVID s/p 3L IVF in the ER for hypotension, BPs improving but still borderline. No lightheaded/dizziness at present. Kidney function stable. No granular casts on UA Admit to PCU w/ telemetry given tachycardia/hypotension/close monitoring Biofire testing POSITIVE for COVID-19 Given Vanco/Zosyn/Clinda in ER -- Deferring continuing abx at present given +COVID/negative procal/no consolidative process on CXR Blood cultures pending and will need f/ui Not hypoxic at present and currently 94% on RA -- if becomes hypoxic, recommend adding decadron Incentive spirometer, flutter valve, Duonebs q4r scheduled for now Discussed w/ patient/ about Paxlovid - she is willing to go pickle sorter at [facility] today and bring back in --> order placed to begin tonight once received Antipyretics as needed IVF NSS @100cc/hr for dehydration on exam/hypotension/looses from fever, slight dehydration on exam Heparin SQ for DVT prophylaxis Labs in AM (2) COVID-19: Plan: found to be positive on biofire -- has been vaccinated x 2, never had in the past isolation precautions not hypoxic at present, deferring Decadron for now -- start if he were to become such Rx to [facility] for Paxlovid and to begin when she brings back in Incentive spirometer, flutter valve, Mucinex bid Supplemental O2 to maintain sats -- currently 94% (3) Elevated lactic acid level: Plan: 2.6--> 2.2. no abdominal pain on exam. suspect 2nd to covid infection as above cxr w/o consolidative process (at present), not hypoxic (?if was at home though), UA doesn't appear to be infected but pending further results IVF as above, supportive care (4) Fever: Plan: 2nd to viral illness, antipyretics prn, monitor blood cultures (5) Tobacco consumption: Plan: 1/2ppd smoker, declined nicotine patch. rec cessation History of Present Illness Chief Complaint: fever, near syncope, sepsis Primary Care Provider: Karly Wise PA-C 56yo male without significant PMHx (but is current 1/2ppd smoker) who reports he NEVER gets sick, presented to ER with sepsis of unknown source with hypotension/tachycardia/fever 38.6C. Reports was in his usual state of health until about 4am this morning when developed fevers/chills and took some Tylenol around 6-7am and laid back down to sleep until around 11am and felt near-syncope when he got up to walk around. His blood pressure was on the low side on check and was going to take to urgent care but decided to bring to the hospital instead. Found to have elevated lactic acid 2.2. Denies abdominal pain/nausea or vomiting. Denied any issues with eating/drinking/change in bowel habits. Had biofire obtained, strep cx negative initial testing. When inquired about any recent sick contacts patient and note that their child was diagnosed with strep throat about two weeks ago. No recent OTC medications/vaccinations/immunizations or recent events. No recent tick bites/rashes/LE edema reported. 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 Lactic 2.6-->2.2. WBC 9.34k w/ L shift. Chemistries acceptable, BUN/Cr 9/1.05. Procal <0.05. 1L NSS bolus Ibuprofen 600mg PO x 1 now Zosyn/Clinda/Vanc ordered by ER. Blood cultures pending. Initial group A strep testing negative. Biofire pending, urine pending Discussed broad spectrum antibiotics and monitoring blood cultures, obtaining CT soft tissue of neck given lymphadenopathy and monitoring further testing. and patient in agreement with plan. Patient is FULL code if need for any CPR/intubation or life saving measures. Allergies Allergy/AdvReac Type Severity Reaction Status Date / Time banana Allergy Severe Hives Unverified 10/09/22 16:58 Home Medications Medication Instructions Recorded Confirmed Type kdcxzlpqmumy-cew-fxiyn acid-vit 1 tab PO DAILY 10/09/22 10/09/22 History K-lycop 400 mcg-20 mcg-370 mcg tablet (Men's 50 Plus Multivitamin) nirmatrelvir 300 mg (150 mg See Rx Instructions PO .COMPLEX 10/09/22 Rx x2)-ritonavir 100 mg tablet,dose #30 ea pack(EUA) (Paxlovid) Past Med/Surg History Medical History No pertinent past medical history Surgical History H/O umbilical hernia repair History of appendectomy Social History (Updated 10/09/22 @ 17:19 by eMlissa Dickson PA-C) Smoking Status: Current every day smoker Tobacco Type: Cigarettes packs per day: 0.5; Cigarettes Per Day: 1/2 ppd; Do You Dip or Chew Tobacco: No; Hx Alcohol Use: Yes Alcohol type: beer and hard liquor Hx Substance Use: No Preferred Language: Albanian Communication Ability: Effective [employer] Rec[employer]iter Required: No Beliefs That Will Affect Care: None Current Living Situation: Spouse Feels Safe at Home: Yes Safety Concerns: Feels Safe At This Time Assistive Devices: None Assistive Devices Comment: reader glasses Physical Exam Physical Exam: General: WD/WN male laying in hospital bed, at bedside, NAD but sweaty HEENT: head normocephalic, atraumatic, mm slightly dry, trachea midline, +cervical lymphadenopathy, no stridor Resp: not currently tachypneic, slightly diminished in the bases, faint crackles bilateral posterior lung hogan, on room air CV: sinus, HRs 90-100s, no significant m/r/g, no pitting edema/calf tenderness GI: +BS, soft/NT MSK/Neuro: no focal deficit, no slurred speech, answering questions appropriately Psych:aox3, cooperative with exam Skin: no obvious rashes/lesions, skin moist/wet from perspiration Results & Data Results & Data Vital Signs (Past 12 Hours) Vital Signs Temp Pulse Resp BP Pulse Ox O2 Del Method 10/09/22 15:30 38.6 C H 10/09/22 16:30 100 H 31 H 92 10/09/22 16:30 82/58 L 10/09/22 16:20 104 H 21 93 10/09/22 16:10 105 H 27 H 93 10/09/22 16:00 115 H 23 94 10/09/22 16:00 88/60 L 10/09/22 15:50 114 H 31 H 92 10/09/22 15:40 111 H 18 93 10/09/22 15:38 113 H 15 89/60 L 94 10/09/22 15:37 114 H 10/09/22 12:51 38.4 C H 137 H 20 145/71 H Room Air Laboratory Results 10/09/22 10/09/22 10/09/22 Range/Units 17:11 17:11 15:43 WBC (4.8-10.8) K/ul RBC (4.70-6.10) M/uL Hgb (14.0-18.0) g/dl Hct (42.0-52.0) % MCV (80.0-100.0) fL MCH (25.0-34.0) pg MCHC (32.0-36.0) g/dL RDW Std Deviation (36.4-46.3) fL RDW Coeff of Jamil (11.5-14.5) % Plt Count (130-400) K/uL MPV (9.4-12.4) fL Immature Gran % (Auto) % Neut % (Auto) % Lymph % (Auto) % [place] % (Auto) % Eos % (Auto) % Baso % (Auto) % Neut # (Auto) (1.40-6.50) K/uL Lymph # (Auto) (1.2-3.4) K/uL [place] # (Auto) (0.11-0.59) K/uL Eos # (Auto) (0-0.50) K/uL Baso # (Auto) (0-0.2) K/uL Immature Gran # (Auto) (0.01-0.20) K/uL PT (9.0-12.0) Seconds INR (0.9-1.1) APTT (21.0-31.0) Seconds PTT Ratio Sodium (136-145) mmol/L Potassium (3.5-5.1) mmol/L Chloride (98-107) mmol/L Carbon Dioxide (21-32) mmol/L Anion Gap (3-11) BUN (6-23) mg/dl Creatinine (0.6-1.4) mg/dl Est Cr Clr Drug Dosing ml/min Est GFR ( Amer) ml/min Est GFR (Non-Af Amer) ml/min BUN/Creatinine Ratio (10-20) Glucose (70-99(Fasting)) mg/dl Lactate (0.4-2.0) mmol/L Calcium (8.6-10.3) mg/dl Magnesium (1.7-2.4) mg/dl Total Bilirubin (0.2-1.0) mg/dl AST (13-39) U/L ALT (7-52) U/L Alkaline Phosphatase (34-104) U/L Troponin I High Sens (0-20) pg/ml Total Protein (6.0-8.3) gm/dl Albumin (3.4-5.0) gm/dl Globulin (2.5-4.0) gm/dl Albumin/Globulin Ratio (0.9-2) Procalcitonin (0-0.5) ng/ml Urine Color Urine Appearance (Clear) Urine pH (4.5-7.5) Ur Specific [place] (1.000-1.030) Urine Protein (Negative) Urine Glucose (UA) (Negative) Urine Ketones (Negative) Urine Blood (Negative) Urine Nitrite (Negative) Urine Bilirubin (Negative) Urine Urobilinogen (Negative) Ur Leukocyte Esterase (Negative) Urine WBC (Auto) Urine RBC (Auto) U Hyaline Cast (Auto) U Epithel Cells (Auto) Urine Bacteria (Auto) Ur Renal Epithelial Cell Adenovirus (PCR) Pending B. pertussis DNA (PCR) Pending B.parapertussis DNA PCR Pending C. pneumoniae DNA (PCR) Pending Coronavirus OC43 (PCR) Pending Coronavirus HKU1 (PCR) Pending Coronavirus 229E (PCR) Pending SARS-CoV-2 (PCR) Pending Coronavirus NL63 (PCR) Pending Monoscreen Pending Human Metapneumovir PCR Pending Influenza Type B (PCR) Pending M. pneumoniae (PCR) Pending Parainfluenza 1 (PCR) Pending Parainfluenza 2 (PCR) Pending Parainfluenza 3 (PCR) Pending Parainfluenza 4 (PCR) Pending RSV (PCR) Pending Entero/Rhino (PCR) Pending Anti-Streptolysin O Ab Pending Group A Strep (Molecular) (Negative) Group A Strep (PCR) 10/09/22 10/09/22 10/09/22 Range/Units 15:34 14:50 14:39 WBC (4.8-10.8) K/ul RBC (4.70-6.10) M/uL Hgb (14.0-18.0) g/dl Hct (42.0-52.0) % MCV (80.0-100.0) fL MCH (25.0-34.0) pg MCHC (32.0-36.0) g/dL RDW Std Deviation (36.4-46.3) fL RDW Coeff of Jamil (11.5-14.5) % Plt Count (130-400) K/uL MPV (9.4-12.4) fL Immature Gran % (Auto) % Neut % (Auto) % Lymph % (Auto) % [place] % (Auto) % Eos % (Auto) % Baso % (Auto) % Neut # (Auto) (1.40-6.50) K/uL Lymph # (Auto) (1.2-3.4) K/uL [place] # (Auto) (0.11-0.59) K/uL Eos # (Auto) (0-0.50) K/uL Baso # (Auto) (0-0.2) K/uL Immature Gran # (Auto) (0.01-0.20) K/uL PT (9.0-12.0) Seconds INR (0.9-1.1) APTT (21.0-31.0) Seconds PTT Ratio Sodium (136-145) mmol/L Potassium (3.5-5.1) mmol/L Chloride (98-107) mmol/L Carbon Dioxide (21-32) mmol/L Anion Gap (3-11) BUN (6-23) mg/dl Creatinine (0.6-1.4) mg/dl Est Cr Clr Drug Dosing ml/min Est GFR ( Amer) ml/min Est GFR (Non-Af Amer) ml/min BUN/Creatinine Ratio (10-20) Glucose (70-99(Fasting)) mg/dl Lactate 2.2 H* (0.4-2.0) mmol/L Calcium (8.6-10.3) mg/dl Magnesium (1.7-2.4) mg/dl Total Bilirubin (0.2-1.0) mg/dl AST (13-39) U/L ALT (7-52) U/L Alkaline Phosphatase (34-104) U/L Troponin I High Sens (0-20) pg/ml Total Protein (6.0-8.3) gm/dl Albumin (3.4-5.0) gm/dl Globulin (2.5-4.0) gm/dl Albumin/Globulin Ratio (0.9-2) Procalcitonin (0-0.5) ng/ml Urine Color Dark Yellow Urine Appearance Clear (Clear) Urine pH 8.5 H (4.5-7.5) Ur Specific [place] 1.026 (1.000-1.030) Urine Protein 1+ H (Negative) Urine Glucose (UA) Negative (Negative) Urine Ketones Trace H (Negative) Urine Blood Negative (Negative) Urine Nitrite Negative (Negative) Urine Bilirubin Negative (Negative) Urine Urobilinogen Negative (Negative) Ur Leukocyte Esterase Negative (Negative) Urine WBC (Auto) Pending Urine RBC (Auto) Pending U Hyaline Cast (Auto) Pending U Epithel Cells (Auto) Pending Urine Bacteria (Auto) Pending Ur Renal Epithelial Cell Pending Adenovirus (PCR) B. pertussis DNA (PCR) B.parapertussis DNA PCR C. pneumoniae DNA (PCR) Coronavirus OC43 (PCR) Coronavirus HKU1 (PCR) Coronavirus 229E (PCR) SARS-CoV-2 (PCR) Coronavirus NL63 (PCR) Monoscreen Human Metapneumovir PCR Influenza Type B (PCR) M. pneumoniae (PCR) Parainfluenza 1 (PCR) Parainfluenza 2 (PCR) Parainfluenza 3 (PCR) Parainfluenza 4 (PCR) RSV (PCR) Entero/Rhino (PCR) Anti-Streptolysin O Ab Group A Strep (Molecular) Negative (Negative) Group A Strep (PCR) 10/09/22 10/09/22 10/09/22 Range/Units 14:39 12:53 12:53 WBC (4.8-10.8) K/ul RBC (4.70-6.10) M/uL Hgb (14.0-18.0) g/dl Hct (42.0-52.0) % MCV (80.0-100.0) fL MCH (25.0-34.0) pg MCHC (32.0-36.0) g/dL RDW Std Deviation (36.4-46.3) fL RDW Coeff of Jamil (11.5-14.5) % Plt Count (130-400) K/uL MPV (9.4-12.4) fL Immature Gran % (Auto) % Neut % (Auto) % Lymph % (Auto) % [place] % (Auto) % Eos % (Auto) % Baso % (Auto) % Neut # (Auto) (1.40-6.50) K/uL Lymph # (Auto) (1.2-3.4) K/uL [place] # (Auto) (0.11-0.59) K/uL Eos # (Auto) (0-0.50) K/uL Baso # (Auto) (0-0.2) K/uL Immature Gran # (Auto) (0.01-0.20) K/uL PT (9.0-12.0) Seconds INR (0.9-1.1) APTT (21.0-31.0) Seconds PTT Ratio Sodium 138 (136-145) mmol/L Potassium 3.9 (3.5-5.1) mmol/L Chloride 103 (98-107) mmol/L Carbon Dioxide 27 (21-32) mmol/L Anion Gap 8 (3-11) BUN 9 (6-23) mg/dl Creatinine 1.05 (0.6-1.4) mg/dl Est Cr Clr Drug Dosing 74.3 ml/min Est GFR ( Amer) 92.2 ml/min Est GFR (Non-Af Amer) 79.5 ml/min BUN/Creatinine Ratio 8.6 L (10-20) Glucose 94 (70-99(Fasting)) mg/dl Lactate (0.4-2.0) mmol/L Calcium 9.4 (8.6-10.3) mg/dl Magnesium 2.0 (1.7-2.4) mg/dl Total Bilirubin 0.9 (0.2-1.0) mg/dl AST 26 (13-39) U/L ALT 31 (7-52) U/L Alkaline Phosphatase 64 (34-104) U/L Troponin I High Sens 2.6 (0-20) pg/ml Total Protein 7.5 (6.0-8.3) gm/dl Albumin 4.5 (3.4-5.0) gm/dl Globulin 3.0 (2.5-4.0) gm/dl Albumin/Globulin Ratio 1.5 (0.9-2) Procalcitonin < 0.05 (0-0.5) ng/ml Urine Color Urine Appearance (Clear) Urine pH (4.5-7.5) Ur Specific [place] (1.000-1.030) Urine Protein (Negative) Urine Glucose (UA) (Negative) Urine Ketones (Negative) Urine Blood (Negative) Urine Nitrite (Negative) Urine Bilirubin (Negative) Urine Urobilinogen (Negative) Ur Leukocyte Esterase (Negative) Urine WBC (Auto) Urine RBC (Auto) U Hyaline Cast (Auto) U Epithel Cells (Auto) Urine Bacteria (Auto) Ur Renal Epithelial Cell Adenovirus (PCR) B. pertussis DNA (PCR) B.parapertussis DNA PCR C. pneumoniae DNA (PCR) Coronavirus OC43 (PCR) Coronavirus HKU1 (PCR) Coronavirus 229E (PCR) SARS-CoV-2 (PCR) Coronavirus NL63 (PCR) Monoscreen Human Metapneumovir PCR Influenza Type B (PCR) M. pneumoniae (PCR) Parainfluenza 1 (PCR) Parainfluenza 2 (PCR) Parainfluenza 3 (PCR) Parainfluenza 4 (PCR) RSV (PCR) Entero/Rhino (PCR) Anti-Streptolysin O Ab Group A Strep (Molecular) (Negative) Group A Strep (PCR) Cancelled 10/09/22 10/09/22 10/09/22 Range/Units 12:53 12:53 12:53 WBC 9.34 (4.8-10.8) K/ul RBC 5.08 (4.70-6.10) M/uL Hgb 16.3 (14.0-18.0) g/dl Hct 46.1 (42.0-52.0) % MCV 90.7 (80.0-100.0) fL MCH 32.1 (25.0-34.0) pg MCHC 35.4 (32.0-36.0) g/dL RDW Std Deviation 41.2 (36.4-46.3) fL RDW Coeff of Jamil 12.5 (11.5-14.5) % Plt Count 277 (130-400) K/uL MPV 9.8 (9.4-12.4) fL Immature Gran % (Auto) 0.4 % Neut % (Auto) 83.8 % Lymph % (Auto) 6.2 % [place] % (Auto) 7.2 % Eos % (Auto) 1.8 % Baso % (Auto) 0.6 % Neut # (Auto) 7.82 H (1.40-6.50) K/uL Lymph # (Auto) 0.58 L (1.2-3.4) K/uL [place] # (Auto) 0.67 H (0.11-0.59) K/uL Eos # (Auto) 0.17 (0-0.50) K/uL Baso # (Auto) 0.06 (0-0.2) K/uL Immature Gran # (Auto) 0.04 (0.01-0.20) K/uL PT 11.3 (9.0-12.0) Seconds INR 1.0 (0.9-1.1) APTT 25.7 (21.0-31.0) Seconds PTT Ratio 0.9 Sodium (136-145) mmol/L Potassium (3.5-5.1) mmol/L Chloride (98-107) mmol/L Carbon Dioxide (21-32) mmol/L Anion Gap (3-11) BUN (6-23) mg/dl Creatinine (0.6-1.4) mg/dl Est Cr Clr Drug Dosing ml/min Est GFR ( Amer) ml/min Est GFR (Non-Af Amer) ml/min BUN/Creatinine Ratio (10-20) Glucose (70-99(Fasting)) mg/dl Lactate 2.6 H* (0.4-2.0) mmol/L Calcium (8.6-10.3) mg/dl Magnesium (1.7-2.4) mg/dl Total Bilirubin (0.2-1.0) mg/dl AST (13-39) U/L ALT (7-52) U/L Alkaline Phosphatase (34-104) U/L Troponin I High Sens (0-20) pg/ml Total Protein (6.0-8.3) gm/dl Albumin (3.4-5.0) gm/dl Globulin (2.5-4.0) gm/dl Albumin/Globulin Ratio (0.9-2) Procalcitonin (0-0.5) ng/ml Urine Color Urine Appearance (Clear) Urine pH (4.5-7.5) Ur Specific [place] (1.000-1.030) Urine Protein (Negative) Urine Glucose (UA) (Negative) Urine Ketones (Negative) Urine Blood (Negative) Urine Nitrite (Negative) Urine Bilirubin (Negative) Urine Urobilinogen (Negative) Ur Leukocyte Esterase (Negative) Urine WBC (Auto) Urine RBC (Auto) U Hyaline Cast (Auto) U Epithel Cells (Auto) Urine Bacteria (Auto) Ur Renal Epithelial Cell Adenovirus (PCR) B. pertussis DNA (PCR) B.parapertussis DNA PCR C. pneumoniae DNA (PCR) Coronavirus OC43 (PCR) Coronavirus HKU1 (PCR) Coronavirus 229E (PCR) SARS-CoV-2 (PCR) Coronavirus NL63 (PCR) Monoscreen Human Metapneumovir PCR Influenza Type B (PCR) M. pneumoniae (PCR) Parainfluenza 1 (PCR) Parainfluenza 2 (PCR) Parainfluenza 3 (PCR) Parainfluenza 4 (PCR) RSV (PCR) Entero/Rhino (PCR) Anti-Streptolysin O Ab Group A Strep (Molecular) (Negative) Group A Strep (PCR) Diagnostic Findings Chest X-Ray 10/09/22 12:53 XR chest 1V not portable HISTORY: 56 years-old Male Sepsis acute sepsis COMPARISON: None TECHNIQUE: PA view of the chest FINDINGS: Cardiomediastinal and hilar silhouettes are within normal limits. No pneumothorax, pleural effusion, airspace consolidation or pulmonary edema. Bones of the chest appear grossly intact. IMPRESSION: No acute process. ACT 112: Negative or not required by law. The above report was generated using voice recognition software. It may contain grammatical, syntax or spelling errors. Electronically signed by: Gibran Cosby M.D. 10/09/2022 1:40 PM ECG Additional Comments: Sinus tachycardia, rates 113bpm trop 2.6 on HsT Supervising Physician Co-Signing Physician Notes I personally saw and examined the patient. I verified all lam points and agree with Melissa Dickson PA-C with the following exceptions and/or additions: 56 year old male who presents to the ER with fever, chills started this morning with presyncope. O/E A&Ox3, HS RRR, Chest fine crackles bibasal, Abdo SNT, no pitting edema A/P COVID-19 - vaccinated, never had previous, suspect in acute phases of illness. Given smoking history offered Paxlovid which he wishes to take. IV fluids overnight given hypotensive in the ER - now resolved. Technically meets definition for sepsis but doing very well currently. PG Care Time/CCT Total # of Minutes Spent Total Time Spent with Patient: Total time spent is greater than 50% in coordination of care (as documented) at patient's floor/unit and/or counseling patient: Coding Level of Care Code 75403 INT INP/OBS CARE 3/75MIN Diagnoses Sepsis A41.9 COVID-19 U07.1 Elevated lactic acid level R79.89 Fever R50.9 Tobacco consumption Z72.0
[2022-10-09 17:04] LABS: Protein Urine 1+ (Negative)
[2022-10-09 17:07] LABS: Adenovirus PCR Not Detected (NotDetected); Bordetella parapertussis PCR Not Detected (NotDetected); Bordetella pertussis PCR Not Detected (NotDetected); Chlamydia pneumoniae PCR Not Detected (NotDetected); Coronavirus 229E PCR Not Detected (NotDetected); Coronavirus HKU1 PCR Not Detected (NotDetected); Coronavirus NL63 PCR Not Detected (NotDetected); Coronavirus OC43PCR Not Detected (NotDetected); Human Metapneumovirus PCR Not Detected (NotDetected); Influenza A PCR Not Detected (NotDetected); Influenza B PCR Not Detected (NotDetected); Mycoplasma pneumoniae PCR Not Detected (NotDetected); Parainfluenza Virus 1 PCR Not Detected (NotDetected); Parainfluenza Virus 2 PCR Not Detected (NotDetected); Parainfluenza Virus 3 PCR Not Detected (NotDetected); Parainfluenza Virus 4 PCR Not Detected (NotDetected); Respiratory Syncytial VirusPCR Not Detected (NotDetected); Rhinovirus/Enterovirus PCR Not Detected (NotDetected)
[2022-10-09 17:34] LABS: Coronavirus CoV-2 (COVID19)PCR DETECTED (NotDetected)
[2022-10-09] MEDS ORDERED: SODIUM CHLORIDE 0.9% 1000ML 250 ML IV ONE (18:01)
--- NOTE | 2022-10-09 18:07 | Emergency Department Note ---
ED Visit Note Physician Evaluation Note: Patient was seen in conjunction with the midlevel provider. Please see the midlevel provider note for full details of the patient's visit. I have personally evaluated and examined this patient. Patient presented to the ED with fever, chills, had a sensation of presyncope earlier today. On my initial assessment here in the ED the patient is in no acute distress. Abdomen is soft and nontender, patient denies any sore throat, denies any current shortness of breath. He is saturating well on room air, he is hypotensive in the 90s/60s on the monitor as I am speaking to him. His lab work shows no leukocytosis, procalcitonin is low. Blood cultures were ordered, patient was started on prophylactic broad-spectrum antibiotics given his fever and hypotension. Viral panel testing did result in the patient is positive for COVID-19, I suspect this is the source of his symptoms given that they are vague in nature and he has no focal complaints of pain on my history. He is very conversational and otherwise appears well, he is saturating well on room air. Given the patient's vital sign abnormalities including his still mild hypotension despite fluid resuscitation and presenting tachycardia, he will be admitted for observation. Will defer to the admitting service in regards to antiviral therapy to be initiated. Patient is in agreement for admission, he was placed for admission in stable condition. I agree with assessment and plan of CASEY Farris DO .
[2022-10-09] MEDS ORDERED: ONDANSETRON INJ 2 MG/ML 2 ML VIAL IV PRN (20:04)
[2022-10-09] MEDS ORDERED: ACETAMINOPHEN 500 MG TAB PO PRN (20:04)
[2022-10-09] MEDS: ALBUT/IPRATROP 3MG/0.5MG NEB 3 ML VIAL NEB SCH ×2 (20:22→23:05)
[2022-10-09] MEDS: guaiFENesin 600 MG TABCR PO SCH (20:41)
[2022-10-09] MEDS: HEPARIN SOD 5,000 UNIT/0.5 ML VIAL SQ SCH (20:42)
[2022-10-09] MEDS: SODIUM CHLORIDE 0.9% 1000ML 1,000 ML IV SCH (20:56)
[2022-10-09] MEDS: NIRMATRELVIR/RITONAVIR 1 EA TAB PO SCH (22:04)
[2022-10-10] MEDS: ALBUT/IPRATROP 3MG/0.5MG NEB 3 ML VIAL NEB SCH ×2 (01:58→07:14)
[2022-10-10] MEDS: SODIUM CHLORIDE 0.9% 1000ML 1,000 ML IV SCH (04:48)
[2022-10-10] MEDS: HEPARIN SOD 5,000 UNIT/0.5 ML VIAL SQ SCH ×3 (06:34→21:57)
[2022-10-10] MEDS ORDERED: ALBUT/IPRATROP 3MG/0.5MG NEB 3 ML VIAL NEB PRN (07:53)
[2022-10-10 08:21] LABS: Basophils # (auto) 0.01 K/uL (0-0.2); Basophils % (auto) 0.2 %; Hematocrit (blood only) 36.1 % (42.0-52.0); Hemoglobin 12.5 g/dl (14.0-18.0); Immature Granulocytes # (auto) 0.02 K/uL (0.01-0.20); Immature Granulocytes % (auto) 0.3 %; Lymphocytes # (auto) 1.77 K/uL (1.2-3.4); Lymphocytes % (auto) 28.4 %; Mean Corpuscular Hemoglobin 31.7 pg (25.0-34.0); Mean Corpuscular Hgb Conc 34.6 g/dL (32.0-36.0); Mean Corpuscular Volume 91.6 fL (80.0-100.0); Mean Platelet Volume 10.3 fL (9.4-12.4); Monocytes # (auto) 1.13 K/uL (0.11-0.59); Monocytes % (auto) 18.1 %; Neutrophils # (auto) 3.31 K/uL (1.40-6.50); Platelet Count 197 K/uL (130-400); RDW Coefficient of Variation 13.1 % (11.5-14.5); RDW Standard Deviation 44.3 fL (36.4-46.3); Red Blood Count 3.94 M/uL (4.70-6.10); White Blood Count 6.24 K/ul (4.8-10.8)
[2022-10-10 08:45] LABS: Albumin Globulin Ratio 1.4 (0.9-2); Albumin Level 3.1 gm/dl (3.4-5.0); BUN Creatinine Ratio 13.1 (10-20); Bilirubin,Total 0.6 mg/dl (0.2-1.0); Calcium 7.4 mg/dl (8.6-10.3); Creatinine Clr Calc Pharmacy 80.2 ml/min; Est GFR (Non-African American) 85.4 ml/min; Globulin 2.2 gm/dl (2.5-4.0); Magnesium 1.8 mg/dl (1.7-2.4); Potassium 3.7 mmol/L (3.5-5.1); Total Protein 5.3 gm/dl (6.0-8.3)
[2022-10-10] MEDS: guaiFENesin 600 MG TABCR PO SCH ×2 (08:47→23:08)
[2022-10-10] MEDS: NIRMATRELVIR/RITONAVIR 1 EA TAB PO SCH (08:48)
[2022-10-10 12:25] LABS: C Reactive Protein 3.71 mg/dl (0-0.5)
[2022-10-10] MEDS ORDERED: dexAMETHasone 1 MG TAB PO SCH (16:30)
[2022-10-10 16:44] LABS: BUN Creatinine Ratio 11.5 (10-20); Calcium 7.4 mg/dl (8.6-10.3); Creatinine Clr Calc Pharmacy 82.7 ml/min; Est GFR (African American) 102.7 ml/min; Est GFR (Non-African American) 88.6 ml/min; Potassium 3.9 mmol/L (3.5-5.1)
[2022-10-10] MEDS ORDERED: STAT IV STA (16:44)
[2022-10-10] MEDS ORDERED: CALCIUM GLUCONATE 10% 1,000 MG in DEXTROSE 5% 50 ML IV ONE (16:45)
--- NOTE | 2022-10-10 20:32 | XRay Report ---
XR chest 1V portable CLINICAL HISTORY: hypoxic TECHNIQUE: Single frontal radiograph of the chest was obtained. Comparison: Comparison is made to chest radiograph 10/09/2022 FINDINGS: No lines and tubes are seen. The cardiomediastinal silhouette is normal. The lungs are clear. No evid ence of pleural effusion or pneumothorax. IMPRESSION: No acute chest disease. ACT 112: Negative or not required by law. Electronically signed by: Adeel Singh M.D. 10/10/2022 8:31 PM
[2022-10-10] MEDS ORDERED: dexAMETHasone 1 MG TAB PO ONE (21:00)
--- NOTE | 2022-10-10 22:26 | Hospitalist Progress Note ---
Date of Service October 10, 2022 Assessment & Plan (1) Sepsis: Plan: Tachycardic/hypotensive (but not hypoxic, no pleuritic chest pain reported) with elevated lactic on admission to 2.6--> 2.2 on repeat CXR w/o consolidative process Unclear etiology initially, however did appear likely to be viral in nature vs strep? son recently ill w/ strep throat about 2 weeks ago per report -- initial strep testing in ER negative. fine bibasilar crackles on exam and biofire still pending at trime of initial examination w/ bilateral faint crackles/concerns for COVID s/p 3L IVF in the ER for hypotension, BPs improving but still borderline. No lightheaded/dizziness at present. Kidney function stable. 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 Patient has no signs of pahryngitis. will place on dexamethasone. will hold paxlovid as patient is already hospitalized. may consider remdesevir. will monitor o2 sat If crp decreases and patient remains on room air in am, patient will be discharged. (2) COVID-19: Plan: found to be positive on biofire -- has been vaccinated x 2, never had in the past isolation precautions not hypoxic at present, deferring Decadron for now -- start if he were to become such Rx to [facility] for Paxlovid and to begin when she brings back in Incentive spirometer, flutter valve, Mucinex bid Supplemental O2 to maintain sats -- currently 91% (3) Elevated lactic acid level: Plan: 2.6--> 2.2. no abdominal pain on exam. suspect 2nd to covid infection as above cxr w/o consolidative process (at present), not hypoxic (?if was at home though), UA doesn't appear to be infected but pending further results IVF as above, supportive care improved (4) Fever: Plan: 2nd to viral illness, antipyretics prn, monitor blood cultures (5) Tobacco consumption: Plan: 1/2ppd smoker, declined nicotine patch. rec cessation Admission and Anticipated Discharge Date Admission Date: October 09, 2022 Subjective Patient appears more comfortable, not at 100 percent, but improving. Review of Systems Review of Systems: All systems reviewed & are unremarkable except as noted in HPI & below Physical Exam Physical Exam: General: WD/WN male laying in hospital bed, at bedside, NAD HEENT: head normocephalic, atraumatic, mm slightly dry, trachea midline, +cervical lymphadenopathy, no stridor Resp: not currently tachypneic, faint crackles bilateral posterior lung hogan, on room air CV: sinus, HRs 90 no significant m/r/g, no pitting edema/calf tenderness GI: +BS, soft/NT MSK/Neuro: no focal deficit, no slurred speech, answering questions appropriately Psych:aox3, cooperative with exam Skin: no obvious rashes/lesions Results & Data Results & Data Vital Signs (Past 12 Hours) Vital Signs Temp Pulse Pulse Resp BP Pulse Ox O2 Del Method 10/10/22 18:59 36.6 C 79 20 122/70 90 Room Air 10/10/22 17:00 36.7 C 71 18 96 Room Air 10/10/22 14:55 37.9 C H 72 18 110/65 91 Room Air 10/10/22 12:19 37 C 67 18 112/67 94 Room Air 10/10/22 11:43 94 H 10/10/22 11:43 Room Air PG Care Time/CCT Total # of Minutes Spent Total Time Spent with Patient: Total time spent is greater than 50% in coordination of care (as documented) at patient's floor/unit and/or counseling patient: Coding Level of Care Code 69598 SUB INP/OBS CARE 2/35MIN Diagnoses Sepsis A41.9 Sepsis acute organ dysfunction status: without acute organ dysfunction Sepsis type: sepsis due to unspecified organism COVID-19 U07.1 Elevated lactic acid level R79.89 Fever R50.9 Encounter type: initial encounter Tobacco consumption Z72.0 (1) Sepsis Sepsis acute organ dysfunction status: without acute organ dysfunction Sepsis type: sepsis due to unspecified organism Qualified Code(s): A41.9 - Sepsis, unspecified organism (4) Fever Encounter type: initial encounter
--- NOTE | 2022-10-11 05:44 | Electrocardiogram Report ---
Test Reason : Blood Pressure : / mmHG Vent. Rate : 113 BPM Atrial Rate : 113 BPM P-R Int : 116 ms QRS Dur : 072 ms QT Int : 306 ms P-R-T Axes : 058 004 044 degrees QTc Int : 419 ms Sinus tachycardia Otherwise normal ECG No previous ECGs available Confirmed by Seng Santos ([id number]) on 10/11/2022 5:44:15 AM Referred By: REFERRED SELF Confirmed By:Seng Santos
[2022-10-11] MEDS: HEPARIN SOD 5,000 UNIT/0.5 ML VIAL SQ SCH ×2 (06:02→14:35)
[2022-10-11] MEDS: guaiFENesin 600 MG TABCR PO SCH (07:38)
[2022-10-11 07:58] LABS: Basophils # (auto) 0.01 K/uL (0-0.2); Basophils % (auto) 0.2 %; Hematocrit (blood only) 41.2 % (42.0-52.0); Hemoglobin 14.3 g/dl (14.0-18.0); Immature Granulocytes # (auto) 0.02 K/uL (0.01-0.20); Immature Granulocytes % (auto) 0.4 %; Lymphocytes # (auto) 1.05 K/uL (1.2-3.4); Lymphocytes % (auto) 19.6 %; Mean Corpuscular Hemoglobin 31.5 pg (25.0-34.0); Mean Corpuscular Hgb Conc 34.7 g/dL (32.0-36.0); Mean Corpuscular Volume 90.7 fL (80.0-100.0); Mean Platelet Volume 10.9 fL (9.4-12.4); Monocytes # (auto) 0.29 K/uL (0.11-0.59); Monocytes % (auto) 5.4 %; Neutrophils # (auto) 3.99 K/uL (1.40-6.50); Neutrophils % (auto) 74.4 %; Platelet Count 212 K/uL (130-400); RDW Coefficient of Variation 12.8 % (11.5-14.5); RDW Standard Deviation 42.5 fL (36.4-46.3); Red Blood Count 4.54 M/uL (4.70-6.10); White Blood Count 5.36 K/ul (4.8-10.8)
[2022-10-11 08:23] LABS: Albumin Globulin Ratio 1.4 (0.9-2); Albumin Level 3.5 gm/dl (3.4-5.0); BUN Creatinine Ratio 13.8 (10-20); Bilirubin,Total 0.4 mg/dl (0.2-1.0); C Reactive Protein 2.1 mg/dl (0-0.5); Calcium 8.3 mg/dl (8.6-10.3); Creatinine Clr Calc Pharmacy 84.5 ml/min; Est GFR (African American) 105.4 ml/min; Est GFR (Non-African American) 90.9 ml/min; Globulin 2.5 gm/dl (2.5-4.0); Potassium 4.7 mmol/L (3.5-5.1)
[2022-10-11] MEDS ORDERED: dexAMETHasone 1 MG TAB PO SCH (09:00)
[2022-10-11 14:27] LABS: Epstein Barr Virus Early Ag Ab <9.00 U/mL
--- NOTE | 2022-10-17 14:44 | Discharge Summary ---
Date of Service October 11, 2022 Admission HPI Per Admitting Provider 56yo male without significant PMHx (but is current 1/2ppd smoker) who reports he NEVER gets sick, presented to ER with sepsis of unknown source with hypotension/tachycardia/fever 38.6C. Reports was in his usual state of health until about 4am this morning when developed fevers/chills and took some Tylenol around 6-7am and laid back down to sleep until around 11am and felt near-syncope when he got up to walk around. His blood pressure was on the low side on check and was going to take to urgent care but decided to bring to the hospital instead. Found to have elevated lactic acid 2.2. Denies abdominal pain/nausea or vomiting. Denied any issues with eating/drinking/change in bowel habits. Had biofire obtained, strep cx negative initial testing. When inquired about any recent sick contacts patient and note that their child was diagnosed with strep throat about two weeks ago. No recent OTC medications/vaccinations/immunizations or recent events. No recent tick bites/rashes/LE edema reported. 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 Lactic 2.6-->2.2. WBC 9.34k w/ L shift. Chemistries acceptable, BUN/Cr 9/1.05. Procal <0.05. 1L NSS bolus Ibuprofen 600mg PO x 1 now Zosyn/Clinda/Vanc ordered by ER. Blood cultures pending. Initial group A strep testing negative. Biofire pending, urine pending Discussed broad spectrum antibiotics and monitoring blood cultures, obtaining CT soft tissue of neck given lymphadenopathy and monitoring further testing. and patient in agreement with plan. Patient is FULL code if need for any CPR/intubation or life saving measures. Principal Diagnosis COVID 19 Discharge Exam General: WD/WN male laying in hospital bed HEENT: head normocephalic, atraumatic, mm slightly dry, trachea midline, +cervical lymphadenopathy, no stridor Resp:on room air. CV: sinus, HRs 90 no significant m/r/g, no pitting edema/calf tenderness GI: +BS, soft/NT MSK/Neuro: no focal deficit, no slurred speech, answering questions appropriately Psych:aox3, cooperative with exam Skin: no obvious rashes/lesions Discharge Data Allergies Allergy/AdvReac Type Severity Reaction Status Date / Time banana Allergy Severe Hives Unverified 10/09/22 16:58 Consultations 10/09/22 16:48 ED Decision to Admit Stat Hospital Course (1) Sepsis: Tachycardic/hypotensive (but not hypoxic, no pleuritic chest pain reported) with elevated lactic on admission to 2.6--> 2.2 on repeat CXR w/o consolidative process Unclear etiology initially, however did appear likely to be viral in nature vs strep? son recently ill w/ strep throat about 2 weeks ago per report -- initial strep testing in ER negative. fine bibasilar crackles on exam and biofire still pending at trime of initial examination w/ bilateral faint crackles/concerns for COVID s/p 3L IVF in the ER for hypotension, BPs improving but still borderline. No lightheaded/dizziness at present. Kidney function stable. No granular casts on UA Admit to PCU w/ telemetry given tachycardia/hypotension/close monitoring Biofire testing POSITIVE for COVID-19 Given Vanco/Zosyn/Clinda in ER -- Held antibiotics as patient does not appear to have a bacterial infection. Clinical picture fits that of COVID 19. Patient improved with decadron. will complete 10 day course as an outpatient. Paxolovid will be stopped. (2) COVID-19: found to be positive on biofire -- has been vaccinated x 2, never had in the past as above. (3) Elevated lactic acid level: 2.6--> 2.2. no abdominal pain on exam. suspect 2nd to covid infection as above cxr w/o consolidative process (at present), not hypoxic (?if was at home though), UA doesn't appear to be infected but pending further results IVF as above, supportive care improved (4) Fever: 2nd to viral illness, antipyretics prn, monitor blood cultures (5) Tobacco consumption: 1/2ppd smoker, declined nicotine patch. rec cessation Total Time Total Time Spent Total Time Spent (In Minutes): 32 Discharge Plan Discharge Items Patient Disposition: Home - Self-Care Reason For Visit: SEPSIS Discharge Diagnosis: COVID Condition on Discharge: Good Activity: Resume your previous activity Non-emergency contact: Primary Care Provider Call non-emergency contact if: you have any medication questions Follow-up/Referrals: Karly Wise PA-C [Primary Care Provider] - 10/19/22 10:05 am (Follow up scheduled on 10/19/22 @ 10:05am. In the [facility] Office located at [address], [place] [address] [address]. Follow up scheduled with Dr. Cavazos) Diet: Regular Addtl Attending Provider Instructions: You were diagnosed with COVID 19. Thankfully you have shown improvement with the steroids that were prescribed. You will need to continue this for another 8 doses starting tomorrow. If you're providing discharge instructions for a patient recovering from COVID- 19, here are some important points to cover: 1. Isolation and home quarantine: Emphasize the need to continue self-isolation at home to prevent the spread of the virus, during the first 5 days, it is important to isolate. When you wake up Sunday morning this will conclude your isolation. You can then go in public but please wear a mask until next Sunday. 2. Rest and recovery: Encourage you to prioritize rest and take it easy during the recovery period. Adequate rest can help the body heal and regain strength. 3. Medications: as below. 4. Symptom monitoring: Potential warning signs that require immediate medical attention, such as difficulty breathing, persistent chest pain, or confusion. 5. Hydration and nutrition: We emphasize the importance of staying well-hydrated and maintaining a nutritious diet to support the healing process. We encourage you to drink plenty of fluids and consume a balanced diet rich in fruits, vegetables, whole grains, and lean proteins. 6. Respiratory hygiene: Please continue practicing good respiratory hygiene, including covering their mouth and nose with a tissue or elbow when coughing or sneezing. Limit sharing personal items during this time and promote regular hand hygiene. 7. Follow-up care: recommend follow-up in 1-2 weeks. 8. Vaccination: In 3 months, it may be a good idea to get the omicron variant vaccine to limit another illness. It appears that we will require annual boosters to cover for this infection. Please discuss further vaccinations with your PCP Pending Studies at Discharge: No Stand-Alone Forms: My [facility], Smoking Cessation Medications and DC Order Prescriptions: New dexamethasone 1 mg Tablet 6 mg PO DAILY Qty: 8 0RF guaifenesin [Mucinex] 600 mg Tablet Extended Release 12hr 600 mg PO Q12 Qty: 28 0RF dexamethasone 6 mg tablet 6 mg PO DAILY Qty: 8 0RF Continued Men's 50 Plus Multivitamin 400-20-370 mcg Tablet 1 tab PO DAILY Discharge Orders: Discharge Order (Routine); Ordered 10/11/22 Ordered By: Mannie Cabrera Admission Data Admit Date/Time: 10/09/22 17:30 Attending Provider: Mannie Cabrera Admit Provider: Jose Wang Primary Care Provider: Karly Wise Other Providers: Jose Wang Other Interventions: Discharge Summary Assessment (RN) Last Done: 10/11/22 11:01 Coding Level of Care Code 87571 INP/OBS DISCH >30 MIN Diagnoses Sepsis A41.9 Sepsis acute organ dysfunction status: without acute organ dysfunction Sepsis type: sepsis due to unspecified organism COVID-19 U07.1 Elevated lactic acid level R79.89 Fever R50.9 Encounter type: initial encounter Tobacco consumption Z72.0
== END 2022-10-11 15:13 | disposition home or self-care (01) | DRG 871 ==
LOC: ED 12:48 → SUATTDRO 17:30 → 2S 17:30